=== PATIENT | female | born 1985 | race Two or more races ===

== ENCOUNTER 2019-02-11 15:41 | Emergency (ER) | payer MEDICAID ==
[~2019-02-11] VITALS: Ht 158.8 cm; Wt 71.4 kg
[2019-02-11 16:00] VITALS: BP 145/105
--- NOTE | 2019-02-11 16:07 | NUR ---
WAIT AT LOBBY.
--- NOTE | 2019-02-11 16:12 | NUR ---
PT TO ER BED 5
--- NOTE | 2019-02-11 16:36 | NUR ---
PT C/O L SIDED NECK PAIN WITH "LUMP" TO SIDE OF NECK X 5 DAYS. PT REPORTS NAUSEA, CHILLS, AND BODY ACHES. DENIES VOMITING OR DIARRHEA. PAIN 10/10 TO SITE. PT AFEBRILE. PT ALERT, AWAKE, AMBULATORY WITH STEADY GAIT. EXAMINATION DONE WITH DR GARCIA: PALPABLE, SMALL AND NONTENDER LYMPH NODE FELT BY MOHAN
[2019-02-11] MEDS ORDERED: KETOROLAC 60 MG/2 ML VIAL IM ONE (16:45)
[2019-02-11] MEDS ORDERED: DEXAMETHASONE 10 MG/ML VIAL IM ONE (16:45)
--- NOTE | 2019-02-11 17:10 | NUR ---
LAB AT BEDSIDE
--- NOTE | 2019-02-11 17:13 | NUR ---
TORADOL AND DECADRON IM ADMINISTERED. NOLVIA TRANSLATED MEDICATION ACTIONS TO PATIENT IN [place]. PT VERBALIZED UNDERSTANDING
[2019-02-11 17:19] LABS: BASOPHILS % (AUTO) 0.4 % (0.0-2.0); EOSINOPHILS % (AUTO) 0.4 % (0.0-4.0); HEMATOCRIT 40.9 % (36-48); HEMOGLOBIN 13.7 g/dL (12.0-16.0); LYMPHOCYTES # (AUTO) 1.3 K/uL (2.5-16.5); LYMPHOCYTES % (AUTO) 18.7 % (20.5-51.1); MEAN CORPUSCULAR HEMOGLOBIN 30 pg (27-31); MEAN CORPUSCULAR HGB CONC 34 g/dL (33-37); MONOCYTES # (AUTO) 0.5 K/uL (0.8-1.0); MONOCYTES % (AUTO) 6.8 % (1.7-9.3); NEUTROPHILS # (AUTO) 5.2 K/uL (1.8-7.7); NEUTROPHILS % (AUTO) 73.7 % (42.2-75.2); PLATELET COUNT (AUTO) 275 K/uL (140-450); RED BLOOD CELL COUNT(AUTO) 4.54 MIL/uL (4.20-5.40); RED CELL DISTRIBUTION WIDTH 12.7 % (11.6-13.7)
--- NOTE | 2019-02-11 18:00 | NUR ---
PAIN 08/27, NADR
--- NOTE | 2019-02-11 18:30 | NUR ---
PT ALERT AND AWAKE, VS TAKEN, SITTING IN BED, PENDING LAB RESULTS
--- NOTE | 2019-02-11 19:04 | NUR ---
REPORT GIVEN TO JEFFERY MUNOZ, ORDERED HCG SERUM, PENDING LAB AT THIS TIME, PT ALERT AND AWAKE UPON REPORT
[2019-02-11 19:15] VITALS: BP 134/93
--- NOTE | 2019-02-11 19:15 | NUR ---
PT DISCHARGED WITH PAPERWORK. EDUCATED PT REGARDING MEDICATIONS AND D/C DIAGNOSIS. PT VERBALIZED UNDERSTANDING. TOLD PT TO FOLLOW UP WITH PCP AND WHEN TO RETURN TO ED. PT AT STABLE CONDITION. ALL QUESTIONS ANSWERED.
== END 2019-02-11 19:15 | disposition home or self-care (01) ==
LOC: MED 15:41
DX: R59.0 Localized enlarged lymph nodes (principal); R05 Cough; R11.0 Nausea
CPT/HCPCS: 36415; 84702; 85025; 86140; 86308; 96372; 99283; J1100; J1885

== ENCOUNTER 2023-05-11 17:55 | Emergency (ER) | payer MEDICAID, OTHER ==
[~2023-05-11] VITALS: Ht 165.1 cm; Wt 74.4 kg
[2023-05-11 18:02] VITALS: BP 140/83; PULSE 89; RESP 18; TEMP 98.7; O2SAT 99
[2023-05-11] MEDS ORDERED: ACET-10509 PO (18:13)
[2023-05-11] MEDS ORDERED: FLONAS NS (18:13)
[2023-05-11] MEDS ORDERED: IBUP-2230 PO (18:13)
[2023-05-11 18:43] LABS: FLU A ANTIGEN negative (NEGATIVE); FLU B ANTIGEN NEGATIVE (NEGATIVE)
== END 2023-05-11 18:20 | disposition home or self-care (01) ==
LOC: MED 17:55
DX: J06.9 Acute upper respiratory infection, unspecified (principal); Z20.822 Contact with and (suspected) exposure to COVID-19; M25.512 Pain in left shoulder; Z79.899 Other long term (current) drug therapy
CPT/HCPCS: 99283

== ENCOUNTER 2023-06-22 19:50 | Emergency (ER) | payer OTHER ==
[~2023-06-22] VITALS: Ht 165.1 cm; Wt 79.1 kg
[~2023-06-22 19:50] MED LIST: ACET-10509 PO; FLONAS NS; IBUP-2230 PO
[2023-06-22 20:00] VITALS: BP 140/90; PULSE 73; RESP 18; TEMP 97.8; O2SAT 100
[2023-06-22 20:26] VITALS: O2SAT 100
[2023-06-22 20:35] VITALS: BP 164/100; PULSE 77; RESP 18; TEMP 98; O2SAT 100
[2023-06-22] MEDS: KETOROLAC 30 MG/ML VIAL IM ONE (21:27)
[2023-06-22] MEDS: LIDOCAINE 5% 1 EA PATCH TP ONE (21:27)
[2023-06-22] MEDS ORDERED: METH-1681 PO (21:29)
[2023-06-22] MEDS ORDERED: LID5T TP (21:29)
== END 2023-06-22 21:41 | disposition home or self-care (01) ==
LOC: MED 19:50
DX: G44.209 Tension-type headache, unspecified, not intractable (principal); M62.838 Other muscle spasm; I10 Essential (primary) hypertension; Z79.899 Other long term (current) drug therapy
CPT/HCPCS: 81025; 96372; 99283; J1885